=== PATIENT | female | born 1950 | race Hispanic/Latino ===

== ENCOUNTER 2024-12-04 06:03 | Day surgery (SDC) | payer OTHER ==
[~2024-12-04] VITALS: Ht 152.4 cm; Wt 48.5 kg
[2024-12-04] VITALS (10 sets, daily range): BP systolic 83–121; BP diastolic 46–64; PULSE 49–66; RESP 14–18; TEMP 96.9–97.8
[2024-12-04] MEDS: 0.9%NACL 1000ML 1,000 ML IV ONE (06:33)
[2024-12-04] MEDS ORDERED: LOSA25TA41 PO (06:41)
[2024-12-04] MEDS ORDERED: PILOC5 PO (06:41)
[2024-12-04] MEDS ORDERED: SERT-439 PO (06:41)
[2024-12-04] MEDS ORDERED: GABA-529 PO (06:41)
[2024-12-04] MEDS ORDERED: LEVO125C5 PO (06:41)
[2024-12-04] MEDS ORDERED: FERR-72 PO (06:41)
[2024-12-04] MEDS ORDERED: HYDR200T75 PO (06:41)
[2024-12-04] MEDS ORDERED: DONE-53 PO (06:41)
[2024-12-04] MEDS ORDERED: LIDOCAINE HCL 1% 20 ML VIAL ONE (07:14)
--- NOTE | 2024-12-04 08:30 | NUR ---
BOTH PT AND SPOUSE GIVEN VERBAL AND WRITTEN DISCHARGE INSTRUCTIONS. IV REMOVED SITE ASYMPTOMATIC PT TAKEN OUT VIA WHEELCHAIR SON DRIVING
== END 2024-12-04 08:35 | disposition home or self-care (01) ==
LOC: DAH 06:03 → ENDO 06:03
PROVIDERS: ATTEND Internal Medicine
DX: K59.00 Constipation, unspecified (principal); D12.5 Benign neoplasm of sigmoid colon; K64.1 Second degree hemorrhoids; I10 Essential (primary) hypertension; E78.5 Hyperlipidemia, unspecified; E03.9 Hypothyroidism, unspecified; R93.3 Abnormal findings on diagnostic imaging of other parts of digestive tract; D64.9 Anemia, unspecified; K44.9 Diaphragmatic hernia without obstruction or gangrene; K29.70 Gastritis, unspecified, without bleeding; M35.00 Sjogren syndrome, unspecified; M19.90 Unspecified osteoarthritis, unspecified site; Z98.1 Arthrodesis status; Z79.899 Other long term (current) drug therapy
CPT/HCPCS: 45380; J7030; J2704; A4620; A4215; 43239; J3490